=== PATIENT | female | born 1985 | race Caucasian/White ===

== ENCOUNTER 2021-03-11 12:00 | Emergency (ER) | payer OTHER, SELFPAY ==
--- NOTE | ~2021-03-11 | XR_ITS ---
EXAMINATION: XR CHEST CLINICAL INFORMATION: Chest pain. COMPARISON: Chest radiograph dated from 07/05/2013. TECHNIQUE: PA view of the chest was obtained. FINDINGS: No significant abnormality is noted involving the heart, lungs, mediastinum, bony thorax or soft tissues. XR/XR chest 1V IMPRESSION: Unremarkable examination.
[2021-03-11 13:01] VITALS: BP 127/82; PULSE 78; RESP 20; TEMP 36.7; O2SAT 97; BMI 30.5
[2021-03-11 13:43] LABS: MANUAL DIFF FLAG NO
[2021-03-11 13:46] LABS: Basophils Absolute Auto 0.1 X10*3/uL (0.0-0.2); Basophils Percent Auto 0.6 % (0-2); Eosinophils Absolute Auto 0.3 X10*3/uL (0.0-0.4); Hematocrit 41.5 % (37.0-47.0); Hemoglobin 13.8 g/dl (12.0-16.0); Imm Gran Abs Auto 0.02 X10*3/uL (0.00-0.03); Imm Gran Pct Auto 0.3 % (0.0-0.4); Lymphocytes Absolute Auto 3.5 X10*3/uL (1.2-4.9); Lymphocytes Percent Auto 44.5 % (20-40); Mean Corpuscular HGB Conc 33.3 g/dl (31.0-35.0); Mean Corpuscular Hemoglobin 26.1 pg (27.0-33.0); Mean Corpuscular Volume 78.4 fL (80.0-98.0); Mean Platelet Volume 11.2 fL (9.4-12.3); Monocytes Absolute Auto 0.5 X10*3/uL (0.1-1.2); Monocytes Percent Auto 6.5 % (2-11); Neutrophils Absolute Auto 3.4 x10*3/uL (2.0-8.3); Neutrophils Percent Auto 44.1 % (45-73); Platelet Count 187 X10*3/uL (160-400); Red Blood Count 5.29 X10*6/uL (4.20-5.50); Red Cell Distribution Width 13.7 % (11.0-16.0); White Blood Count 7.8 X10*3/uL (4.8-10.8)
[2021-03-11 13:57] LABS: INTERNATIONAL NORM RATIO 1.1 (0.9-1.1); Prothrombin Time 12.2 SEC (9.9-13.0)
[2021-03-11 14:05] LABS: Alanine Aminotransferase 23 U/L (0-31); Alkaline Phosphatase 90 U/L (39-117); Aspartate Amino Transferase 27 U/L (5-31); Bilirubin Direct 0.3 mg/dL (0.0-0.5); Bilirubin Total 0.6 mg/dL (0.0-1.0); Total Protein 6.6 g/dL (6.5-8.0)
[2021-03-11 14:14] LABS: HCG Quantitative < 2 mIU/mL
--- NOTE | 2021-03-11 17:03 | ED.GENADULT ---
HPI - General Adult General Chief complaint: General Medical <RAY Francis - Last Filed: 03/11/21 21:11> Stated complaint: Multiple complaints <RAY Francis Last Filed: 03/11/21 21:11> Time Seen by Provider: 03/11/21 13:22 <RAY Francis Last Filed: 03/11/21 21:11> Source: patient <RAY Francis Last Filed: 03/11/21 21:11> Mode of arrival: ambulatory <RAY Francis Last Filed: 03/11/21 21:11> History of Present Illness HPI narrative: 35-year-old female with past medical history of COVID 3 weeks ago, endometriosis, presenting to the ED complaining of suprapubic abdominal pain and vaginal bleeding with clots x4 days. Reports filling about 4 pads today. Denies taking anticoagulation. Also reports cough, headache, chest pain, myalgias, rash, & nausea. Denies being sexually active, denies vaginal discharge, SOB, fever, vomiting/diarrhea, dysuria/hematuria <RAY Francis Last Filed: 03/11/21 21:11> Onset (ago): day(s) <RAY Francis - Last Filed: 03/11/21 21:11> Related Data Home medications: Previous Rx's Medication Instructions Recorded triamcinolone acetonide 0.025 % 1 appl TOPICAL BID #80 g 03/11/21 topical ointment <RAY Francis Last Filed: 03/11/21 21:11> Allergies/adverse reactions: Allergies Allergy/AdvReac Type Severity Reaction Status Date / Time amoxicillin [AMOXICILLIN] Allergy Unknown UNKNOWN Unverified 10/27/19 17:31 dicyclomine [From BENTYL] Allergy Unknown UNKNOWN Unverified 10/27/19 17:31 doxycycline [DOXYCYCLINE] Allergy Unknown UNKNOWN Unverified 10/27/19 17:31 hydromorphone [Dilaudid] Allergy Unknown Verified 09/21/13 00:00 ibuprofen [From MOTRIN] Allergy Unknown UNKNOWN Unverified 10/27/19 17:31 NSAIDS (Non-Steroidal Allergy Unknown UNKNOWN Unverified 10/27/19 17:31 Anti-Inflamma [NSAIDS (NON-STEROIDAL ANTI-INFLAMMA] penicillin V Allergy Unknown Unverified 04/14/14 00:00 Penicillins [PENICILLINS] Allergy Unknown UNKNOWN Unverified 10/27/19 17:31 CILLINS Allergy Unknown UNKNOWN Uncoded 10/27/19 17:31 dilaudid Allergy Unknown nausea Uncoded 04/14/14 00:00 NSAIDS Allergy Unknown Uncoded 04/14/14 00:00 PROVOLONE CHEESE Allergy Unknown UNKNOWN Uncoded 10/27/19 17:31 <RAY Francis - Last Filed: 03/11/21 21:11> Review of Systems Review of Systems: Constitutional: No Fever, No Chills, + Fatigue, No Malaise ENT/Mouth: No Ear Pain, No Nasal Congestion, No sore throat, No Rhinorrhea, No Swallowing Difficulty Eyes: No Eye Pain, No Swelling, No Redness Cardiovascular: + Chest Pain, No SOB, No Edema, + Palpitations Respiratory: + Cough, No Sputum,No Dyspnea Gastrointestinal: + Nausea, No Vomiting, No Diarrhea, No Constipation, + Abdominal pain Genitourinary: + irregular bleeding, No Dysuria, No Urinary Frequency, No Hematuria, No Flank Pain, No Urinary Flow Changes Musculoskeletal: No joint pain, + Myalgias, No Joint Swelling Skin: No Skin Lesions, + rash Neuro: No Weakness, No Loss of Consciousness, No Dizziness, + Headache <RAY Francis - Last Filed: 03/11/21 21:11> Yes all other systems are reviewed and are negative <RAY Francis - Last Filed: 03/11/21 21:11> [facility] Past Medical History Attestation statement: The following information was validated with the patient. <RAY Francis - Last Filed: 03/11/21 21:11> Medical History: Medical History COVID <RAY Francis - Last Filed: 03/11/21 21:11> Social History Social History: Social History Advance Directives: No Advance Directives Information Provided: No Patient : No <RAY Francis Last Filed: 03/11/21 21:11> Physical Exam Vital Signs: Vital Signs: Last Vital Signs Temp 98.4 F 03/11/21 21:08 Pulse 88 03/11/21 21:08 Resp 18 03/11/21 21:08 BP 119/81 03/11/21 21:08 Pulse Ox 98 03/11/21 21:08 BMI result Body Mass Index 30.5 <RAY Francis - Last Filed: 03/11/21 21:11> Const: General: cooperative, healthy appearing, no acute distress, alert and awake <RAY Francis - Last Filed: 03/11/21 21:11> Orientation/consciousness: patient oriented x3 <RAY Francis - Last Filed: 03/11/21 21:11> Limitations: no limitations <RAY Francis - Last Filed: 03/11/21 21:11> HENMT: Head: Yes normal to inspection <RAY Francis - Last Filed: 03/11/21 21:11> Ears: hearing grossly normal bilaterally <RAY Francis - Last Filed: 03/11/21 21:11> General nose exam: Normal external nose present <RAY Francis - Last Filed: 03/11/21 21:11> Face and sinus: Yes normal facial exam <RAY Francis - Last Filed: 03/11/21 21:11> Eyes: General: appearance normal, both eyes and all related structures <RAY Francis - Last Filed: 03/11/21 21:11> EOM: EOMs intact bilaterally <RAY Francis - Last Filed: 03/11/21 21:11> Neck: Neck: Yes normal visual inspection and Yes no meningeal signs <RAY Francis - Last Filed: 03/11/21 21:11> Resp: Effort & Inspection: normal respiratory effort and no respiratory distress <RAY Francis - Last Filed: 03/11/21 21:11> Auscultation: clear to auscultation bilaterally, no rales, no rhonchi and no wheezes <RAY Francis - Last Filed: 03/11/21 21:11> Cardio: Rate: regular rate <Carrie Johnsonsalt PA - Last Filed: 03/11/21 21:11> Heart sounds: S1 normal heart sound present and S2 normal heart sound present <Carrie Poulvelvet PA - Last Filed: 03/11/21 21:11> GI: Inspection: Yes normal to inspection <Carrie Lew PA - Last Filed: 03/11/21 21:11> Palpation (GI): Soft to palpation, nontender, no guarding and not rigid <Carrie Poulvelvet PA - Last Filed: 03/11/21 21:11> : Other: No evidence of active hemorrhage, bleeding cleared with Q-tip <Carrie Poulsalt PA - Last Filed: 03/11/21 21:11> General: Yes no CVA tenderness <Carrie Poulsalt PA - Last Filed: 03/11/21 21:11> Speculum Exam - Vagina: vaginal bleeding <Carrie Lew PA - Last Filed: 03/11/21 21:11> Speculum Exam - Cervix: Cervical os closed <Carrie Lew PA - Last Filed: 03/11/21 21:11> Bimanual exam- vagina & uterus: normal bimanual exam and no cervical motion tenderness <Carrie Lew PA - Last Filed: 03/11/21 21:11> OB/external & speculum: vaginal bleeding; No vaginal discharge <Carrie Lew PA - Last Filed: 03/11/21 21:11> Back/Spine/Pelvis: Back: no CVA tenderness <Carrie Poulvelvet PA - Last Filed: 03/11/21 21:11> Skin: Other: + dermatitis/dry skin to right hand/wrist. No palm/sole involvement. No mucous membrane involvement <Carrie Poulsalt PA - Last Filed: 03/11/21 21:11> Wounds: no wounds <Carrie Poulvelvet PA - Last Filed: 03/11/21 21:11> Neuro: General: patient oriented x3 and no meningeal signs <Carrie Louann PA - Last Filed: 03/11/21 21:11> Gait exam (Neuro): Normal gait present <Carrie Poulsalt PA - Last Filed: 03/11/21 21:11> Extrem: General: Yes normal to inspection <RAY Francis - Last Filed: 03/11/21 21:11> Course Course Course Narrative: -no leukocytosis. H&H stable. Labs otherwise unremarkable. Troponin negative. Beta quant negative XR chest 1V IMPRESSION: Unremarkable examination. >> results discussed with patient including worrisome signs and symptoms and strict return precautions to need close follow-up with PCP/OBGYN. Patient verbalized understanding feel safe for discharge home at this time <RAY Francis - Last Filed: 03/11/21 21:11> Medical Decision Making MDM Narrative Medical decision making narrative: 35-year-old female with past medical history of COVID 3 weeks ago, endometriosis, presenting to the ED complaining of suprapubic abdominal pain and vaginal bleeding with clots x4 days. Also reports cough, headache, chest pain, myalgias, rash, & nausea. On exam vital signs stable, NAD/nontoxic appearing, lungs CTA, abdomen soft/nontender. On pelvic vaginal bleeding noted, no active hemorrhage, cleared with Q-tip, no CMT/adnexal tenderness. Concern for DUB/endometriosis bleeding vs menstruation. Rule out anemia. Lower concern for ovarian torsion/cyst without tenderness on exam. Concern for viral syndrome/post COVID symptoms. Low concern for ACS/PE. Will obtain CXR to rule out pneumonia Plan: EKG, labs, UA, CXR, STI testing <RAY Francis - Last Filed: 03/11/21 21:11> Medical Records Medical records reviewed: Yes I reviewed the patient's medical records. <RAY Francis - Last Filed: 03/11/21 21:11> Lab Data Lab results reviewed: Yes I reviewed the patient's lab results. <RAY Francis - Last Filed: 03/11/21 21:11> Result diagrams: : 03/11/21 13:36 03/11/21 13:36 <RAY Francis - Last Filed: 03/11/21 21:11> Labs: Lab Results 03/11/21 03/11/21 03/11/21 Range/Units 13:36 13:36 13:36 WBC 7.8 (4.8-10.8) X10*3/uL RBC 5.29 (4.20-5.50) X10*6/uL Hgb 13.8 (12.0-16.0) g/dl Hct 41.5 (37.0-47.0) % MCV 78.4 L (80.0-98.0) fL MCH 26.1 L (27.0-33.0) pg MCHC 33.3 (31.0-35.0) g/dl RDW 13.7 (11.0-16.0) % Plt Count 187 (160-400) X10*3/uL MPV 11.2 (9.4-12.3) fL Immature Gran % (Auto) 0.3 (0.0-0.4) % Neut % (Auto) 44.1 L (45-73) % Lymph % (Auto) 44.5 H (20-40) % [place] % (Auto) 6.5 (2-11) % Eos % (Auto) 4.0 (0-4) % Baso % (Auto) 0.6 (0-2) % Lymph # (Auto) 3.5 (1.2-4.9) X10*3/uL [place] # (Auto) 0.5 (0.1-1.2) X10*3/uL Eos # (Auto) 0.3 (0.0-0.4) X10*3/uL Baso # (Auto) 0.1 (0.0-0.2) X10*3/uL Abs Immat Gran (auto) 0.02 (0.00-0.03) X10*3/uL Absolute Neuts (auto) 3.4 (2.0-8.3) x10*3/uL Absolute Nucleated RBC 0.000 (0.0-0.012) X10*3/uL Nucleated RBC % (auto) 0.0 (0.0-0.2) /100WBC PT 12.2 (9.9-13.0) SEC INR 1.1 (0.9-1.1) Sodium 139 (135-145) mmol/L Potassium 4.1 (3.3-5.1) mmol/L Chloride 104 (96-108) mmol/L Carbon Dioxide 27 (22-29) mmol/L Anion Gap 12 (12-20) BUN 9 (9-16) mg/dL Creatinine 0.68 (0.5-1.4) mg/dL Estim Creat Clear Calc 99.5 Estimated GFR > 60 Random Glucose 93 (60-115) mg/dL Calcium 9.2 (8.4-10.2) mg/dL Magnesium 2.0 (1.6-2.6) mg/dL Total Bilirubin 0.6 (0.0-1.0) mg/dL Direct Bilirubin 0.3 (0.0-0.5) mg/dL AST 27 (5-31) U/L ALT 23 (0-31) U/L Alkaline Phosphatase 90 (39-117) U/L Troponin I High Sens (<3.5-17.0) ng/L Total Protein 6.6 (6.5-8.0) g/dL Albumin 4.0 (3.5-5.0) g/dL Beta HCG, Quant < 2 mIU/mL Marisol species DNA (Negative) Chlam trachomat DNA PCR (Not Detect.) Gardnerella DNA Probe (Negative) N.gonorrhoeae DNA (PCR) (Not Detect.) Trichomonas DNA Probe (Negative) 03/11/21 03/11/21 03/11/21 Range/Units 13:36 19:54 19:54 WBC (4.8-10.8) X10*3/uL RBC (4.20-5.50) X10*6/uL Hgb (12.0-16.0) g/dl Hct (37.0-47.0) % MCV (80.0-98.0) fL MCH (27.0-33.0) pg MCHC (31.0-35.0) g/dl RDW (11.0-16.0) % Plt Count (160-400) X10*3/uL MPV (9.4-12.3) fL Immature Gran % (Auto) (0.0-0.4) % Neut % (Auto) (45-73) % Lymph % (Auto) (20-40) % [place] % (Auto) (2-11) % Eos % (Auto) (0-4) % Baso % (Auto) (0-2) % Lymph # (Auto) (1.2-4.9) X10*3/uL [place] # (Auto) (0.1-1.2) X10*3/uL Eos # (Auto) (0.0-0.4) X10*3/uL Baso # (Auto) (0.0-0.2) X10*3/uL Abs Immat Gran (auto) (0.00-0.03) X10*3/uL Absolute Neuts (auto) (2.0-8.3) x10*3/uL Absolute Nucleated RBC (0.0-0.012) X10*3/uL Nucleated RBC % (auto) (0.0-0.2) /100WBC PT (9.9-13.0) SEC INR (0.9-1.1) Sodium (135-145) mmol/L Potassium (3.3-5.1) mmol/L Chloride (96-108) mmol/L Carbon Dioxide (22-29) mmol/L Anion Gap (12-20) BUN (9-16) mg/dL Creatinine (0.5-1.4) mg/dL Estim Creat Clear Calc Estimated GFR Random Glucose (60-115) mg/dL Calcium (8.4-10.2) mg/dL Magnesium (1.6-2.6) mg/dL Total Bilirubin (0.0-1.0) mg/dL Direct Bilirubin (0.0-0.5) mg/dL AST (5-31) U/L ALT (0-31) U/L Alkaline Phosphatase (39-117) U/L Troponin I High Sens < 3.5 (<3.5-17.0) ng/L Total Protein (6.5-8.0) g/dL Albumin (3.5-5.0) g/dL Beta HCG, Quant mIU/mL Marisol species DNA Negative (Negative) Chlam trachomat DNA PCR NOT DETECTED (Not Detect.) Gardnerella DNA Probe Negative (Negative) N.gonorrhoeae DNA (PCR) NOT DETECTED (Not Detect.) Trichomonas DNA Probe Negative (Negative) <RAY Francis - Last Filed: 03/11/21 21:11> Discharge Plan Discharge Clinical Impression: Vaginal bleeding, Dermatitis <RAY Francis - Last Filed: 03/11/21 21:11> Patient Disposition: Home, Self-Care <RAY Francis - Last Filed: 03/11/21 21:11> Instructions: Dysfunctional Uterine Bleeding (ED), Dermatitis (ED) <RAY Francis - Last Filed: 03/11/21 21:11> Additional Instructions: Your blood work was reassuring today in the emergency department. Her chest x-ray was unremarkable. We tested you for sexually transmitted infections, culture should be back in 48-72 hours, we will call you with positive results only Apply triamcinolone cream to rash as needed. Take Benadryl as needed If symptoms persist or worsen, if constant worsening vaginal bleeding, abdominal pain, fever, inability to eat or drink return to the emergency department Please follow-up with her doctor <RAY Francis - Last Filed: 03/11/21 21:11> Prescriptions: New triamcinolone acetonide 0.025 % ointment 1 appl topical BID Qty: 80 0RF <RAY Francis - Last Filed: 03/11/21 21:11> Referrals: Jennyfer Ortega MD [Physician] - 2 days Cornelio Blackwell MD [Physician] - 2 days <RAY Francis - Last Filed: 03/11/21 21:11> Interventions: ED Discharge Assessment Last Done: 03/11/21 21:15 <RAY Francis - Last Filed: 03/11/21 21:11> Discharge Date/Time: 03/11/21 21:17 <RAY Francis - Last Filed: 03/11/21 21:11>
[2021-03-11 18:00] VITALS: BP 146/78; PULSE 78; RESP 189; O2SAT 98
[2021-03-11 18:53] LABS: Anion Gap 12 (12-20); Blood Urea Nitrogen 9 mg/dL (9-16); Calcium 9.2 mg/dL (8.4-10.2); Carbon Dioxide 27 mmol/L (22-29); Chloride 104 mmol/L (96-108); Creatinine Clr Calc Pharmacy 99.5; Estimated Glomerular Filt Rate > 60; Glucose Random 93 mg/dL (60-115); Potassium 4.1 mmol/L (3.3-5.1); Sodium 139 mmol/L (135-145)
--- NOTE | 2021-03-11 19:27 | ECG_ITS ---
Test Reason : CP Blood Pressure : / mmHG Vent. Rate : 071 BPM Atrial Rate : 071 BPM P-R Int : 138 ms QRS Dur : 080 ms QT Int : 422 ms P-R-T Axes : 022 042 043 degrees QTc Int : 458 ms Normal sinus rhythm Normal ECG When compared with ECG of 05-JUL-2013 14:19, Vent. rate has decreased BY 42 BPM Referred By: Carrie Lew Electronically Signed By:DAVIDA JUDGE
[2021-03-11 19:35] LABS: Troponin-I High Sensitivity < 3.5 ng/L (<3.5-17.0)
[2021-03-11 21:08] VITALS: BP 119/81; PULSE 88; RESP 18; TEMP 36.9; O2SAT 98
[2021-03-12 07:22] LABS: CT PCR NOT DETECTED (Not Detect.); NG PCR NOT DETECTED (Not Detect.)
[2021-03-12 15:49] LABS: BV Int Neg Control Negative (Negative); BV Int Pos Control Positive (Positive)
== END 2021-03-11 21:17 | disposition home or self-care (01) ==
PROVIDERS: Physician Assistant; Emergency Provider Emergency Medicine
DX: N93.9 Abnormal uterine and vaginal bleeding, unspecified (principal); L30.9 Dermatitis, unspecified; R10.30 Lower abdominal pain, unspecified; Z86.16 Personal history of COVID-19
CPT/HCPCS: 36415; 71045; 80048; 80076; 83735; 84484; 84702; 85025; 85610; 87480; 87491; 87510; 87591; 87660; 93005; 99284

== ENCOUNTER 2024-06-30 00:02 | Emergency (ER) | payer OTHER, SELFPAY ==
--- NOTE | ~2024-06-30 | CT_ITS ---
CLINICAL HISTORY: fall, [place], confusion CT head without contrast Comparison: None Findings: No intra-axial mass, midline shift, hydrocephalus, or acute hemorrhage. No significant atrophy-like change or white matter disease. There is no sinus or mastoid fluid. The orbits are unremarkable. There is no acute fracture. IMPRESSION: 1. No acute intracranial findings. This document has been electronically signed by: Elida Zacarias MD on 06/30/2024 01:26:52
--- NOTE | ~2024-06-30 | CT_ITS ---
CLINICAL HISTORY: pain, fall CT cervical spine without contrast Comparison: None Findings: Mild convex left curvature. Straightening of upper cervical lordosis. Mild degenerative changes with associated mild to moderate multilevel foraminal stenoses. No acute fractures or dislocations. No acute findings on limited view of the intracranial contents. Soft tissues of the neck are normal. Lung apices are clear. IMPRESSION: No acute findings. This document has been electronically signed by: Elida Zacarias MD on 06/30/2024 01:25:48
[2024-06-30 00:05] VITALS: BP 144/104; PULSE 85; O2SAT 99
[2024-06-30 00:10] VITALS: BP 142/56; PULSE 68; RESP 18; TEMP 36.6; O2SAT 97; BMI 24.1
--- NOTE | 2024-06-30 00:35 | ED.GENADULT ---
HPI - General Adult General Chief complaint: General Medical Stated complaint: Fall 3 days ago, Neck-back pain, head pressure Time Seen by Provider: 06/30/24 00:22 Source: patient Mode of arrival: ambulatory Limitations: no limitations History of Present Illness ED Provider: Dr. Anneliese Harrington HPI narrative: Patient comes to the emergency room via ambulance from home. A proximally, 72 hours ago, patient was rough-housing with her children. Patient states that her 9-year-old son picked her up from her lower extremities and accidentally dropped her on her head. Since then, patient has been having dizziness, feeling lightheaded, light sensitivity, left-sided headache, feels confused at times. Complaining of pressure inside of her head. Patient denies losing consciousness or being on blood thinners. Patient denies visual changes Related Data Previous Rx's ?Medication ?Instructions ?Recorded triamcinolone acetonide 0.025 % 1 appl topical BID #80 grams 03/11/21 topical ointment metoclopramide HCl 5 mg tablet 5 mg PO DAILY #6 tabs 06/30/24 (Reglan) tramadol 50 mg tablet 50 mg PO BID PRN pain #6 tabs 06/30/24 Allergies Allergy/AdvReac Type Severity Reaction Status Date / Time amoxicillin [AMOXICILLIN] Allergy Unknown UNKNOWN Verified 06/30/24 00:19 dicyclomine [From BENTYL] Allergy Unknown UNKNOWN Verified 06/30/24 00:19 doxycycline [DOXYCYCLINE] Allergy Unknown UNKNOWN Verified 06/30/24 00:19 hydromorphone [Dilaudid] Allergy Unknown Unknown Verified 06/30/24 00:19 ibuprofen [From MOTRIN] Allergy Unknown UNKNOWN Verified 06/30/24 00:19 NSAIDS (Non-Steroidal Allergy Unknown UNKNOWN Verified 06/30/24 00:19 Anti-Inflamma [NSAIDS (NON-STEROIDAL ANTI-INFLAMMA] penicillin V Allergy Unknown Unknown Verified 06/30/24 00:19 Penicillins [PENICILLINS] Allergy Unknown UNKNOWN Verified 06/30/24 00:19 CILLINS Allergy Unknown UNKNOWN Uncoded 06/30/24 00:19 dilaudid Allergy Unknown nausea Uncoded 06/30/24 00:19 NSAIDS Allergy Unknown Unknown Uncoded 06/30/24 00:19 PROVOLONE CHEESE Allergy Unknown UNKNOWN Uncoded 06/30/24 00:19 Review of Systems Review of Systems: Constitutional : No Weight loss, No Fever, No Chills, No Night Sweats, No Fatigue, No Malaise ENT/Mouth : No Hearing loss, No Ear Pain, No Nasal Congestion, No Sinus Pain, No Hoarseness, No sore throat, No Rhinorrhea, No Swallowing Difficulty Eyes: Complaining of photosensitivity, No Eye Pain, No Swelling, No Redness, No Foreign Body, No Discharge, No Vision Changes Cardiovascular : No Chest Pain, No SOB, No Dyspnea on Exertion, No Orthopnea, No Edema, No Palpitations Respiratory : No Cough, No Sputum, No Wheezing, No Smoke Exposure, No Dyspnea Gastrointestinal : No Nausea, No Vomiting, No Diarrhea, No Constipation, No abdominal Pain, No Hematochezia, No Melena Genitourinary : no irregular bleeding, No Dysuria, No Urinary Frequency, No Hematuria, No Urinary Incontinence, No Urgency, No Flank Pain, No Urinary Flow Changes, No Hesitancy Musculoskeletal : No joint pain, No Myalgias, No Joint Swelling Skin : No Skin Lesions, No rash Neuro : No Weakness, No Numbness, No Paresthesias, No Loss of Consciousness, complaining of left-sided headache, dizziness, confusion Psych : No Anxiety/Panic, No Depression, No SI/HI/AH/VH, No Social Issues, Heme/Lymph: No Bruising, No Bleeding,No Lymphadenopathy Endocrine : No Polyuria, No Polydipsia, No Temperature Intolerance [facility] Past Medical History Medical History (Updated 06/30/24 @ 01:47 by Anneliese Harrington MD) Anxiety COVID Social History Social History Advance Directives: No Advance Directives Information Provided: Yes Physical Exam ED Vital Signs: Vital Signs - 24 hr 06/30/24 00:10 Temperature 97.8 F Pulse Rate 68 Respiratory Rate 18 Blood Pressure 142/56 H Pulse Oximetry 97 Oxygen Delivery Method Room Air BMI result Body Mass Index 24.1 Const Other: Appearance: Alert. Oriented X3. No acute distress. Eyes: Pupils equal, round and reactive to light. Patient has photosensitivity ENT: Pharynx normal. Neck: Normal inspection. Neck supple. No lymph nodes noted. No crepitus CVS: Normal heart rate and rhythm. Pulses normal. Normal S1 and S2 Respiratory: No respiratory distress. Breath sounds normal. No Wheezing. No rales Abdomen: Soft and nontender. No rigidity. No distention. Skin: Skin warm and dry. Normal skin color. Normal skin turgor. Patient has multiple scalp contusions especially on the left side Extremities: No lower extremity edema. No Lacerations. No Rash Neuro: Oriented X 3. No motor deficit. No sensory deficit. Moving all extremities. No slurred speech. CN 2 through 12 grossly intact Psych: calm, cooperative, normal affect Course Course Course Narrative: Patient likely has a concussion. Patient receiving at this time IV morphine, Reglan, Benadryl. CT scan of the head and cervical spine pending. Patient states that when she was 15-year-old, she got prescribed a muscle relaxant which she does not remember the name, states she had an anaphylactic reaction. Therefore, no muscle relaxants will be prescribed to the patient. Medications Administered Discontinued Medications Generic Name Dose Route Start Last Admin Trade Name Freq PRN Reason Stop Dose Admin Diphenhydramine HCl 25 mg 06/30/24 00:34 06/30/24 01:19 Diphenhydramine Hcl 50 Mg/Ml Vial IVPUSH 06/30/24 00:35 25 mg ONCE ONE Administration Metoclopramide HCl 10 mg 06/30/24 00:34 06/30/24 01:21 Metoclopramide Hcl 10 Mg/2 Ml Vial IVPUSH 06/30/24 00:35 10 mg ONCE ONE Administration Morphine Sulfate 2 mg 06/30/24 00:34 06/30/24 01:19 Morphine Sulfate 2 Mg/Ml Cartridge IVPUSH 06/30/24 00:35 2 mg ONCE ONE Administration Protocol Medical Decision Making Medical Decision Making MDM Narrative: My interpretation of CT head and cervical spine, no acute injury. Clinically, patient has a concussion. Overall, patient feeling a bit better. Discussed with the patient that she it is brain rest for several days. If she does not improve, she may need a referral to sports Medicine for treatment of concussion. Differential Diagnosis Differential Diagnoses: The differential diagnosis associated with the presentation includes (Contusion, concussion, intracranial bleed) Admission/Observation Consideration of admission/observation: Escalation of care including admission/observation considered (Given patient's symptoms, presentation, observation was considered) Independent Interpretation I performed an independent interpretation of an: CT Scan Radiology Impression Discussion of test interpretation with radiology: I have reviewed the radiologist's reading. Radiologist Impression: No intra-axial mass, midline shift, hydrocephalus, or acute hemorrhage. No significant atrophy-like change or white matter disease. There is no sinus or mastoid fluid. The orbits are unremarkable. There is no acute fracture. Critical Care Time Critical Care Time Critical Care Time: Yes Total Critical Care Time: 35 Attestation: I have personally provided critical care time. Time includes review of lab data, radiology results, discussion with consultants, and monitoring for potential decompensation. Intervention performed as documented. Discharge Plan Discharge Clinical Impression: Concussion Patient Disposition: Home, Self-Care Instructions: Concussion (ED) Additional Instructions: I have personally provided critical care time. Time includes review of lab data, radiology results, discussion with consultants, and monitoring for potential decompensation. Intervention performed as documented. Prescriptions: New tramadol 50 mg tablet 50 mg PO BID PRN (Reason: pain) Qty: 6 0RF metoclopramide HCl [Reglan] 5 mg tablet 5 mg PO DAILY Qty: 6 0RF No Action triamcinolone acetonide 0.025 % ointment 1 appl topical BID Qty: 80 0RF Print Language: Korean
[2024-06-30] MEDS: diphenhydrAMINE HCL 50 MG/ML VIAL 25 MG IVPUSH (01:19)
[2024-06-30] MEDS: Morphine Sulfate 2 MG/ML CARTRIDGE IVPUSH (01:19)
[2024-06-30] MEDS: Metoclopramide HCl 10 MG/2 ML VIAL IVPUSH (01:21)
[2024-06-30 02:02] VITALS: BP 115/55; PULSE 85; RESP 18; TEMP 36.8; O2SAT 97
[2024-06-30 02:08] VITALS: BP 115/55; PULSE 85; RESP 18; TEMP 36.8; O2SAT 97
== END 2024-06-30 02:34 | disposition home or self-care (01) ==
PROVIDERS: Emergency Provider Emergency Medicine; PCP Family Medicine
DX: S06.0X0A Concussion without loss of consciousness, initial encounter (principal); W04.XXXA Fall while being carried or supported by other persons, initial encounter; R42 Dizziness and giddiness; Y93.83 Activity, rough housing and horseplay; Y92.039 Unspecified place in apartment as the place of occurrence of the external cause; Y99.9 Unspecified external cause status
CPT/HCPCS: 70450; 72125; 96374; 96375; 99283; 99284; J1200; J2270; J2765

== ENCOUNTER → 2024-06-30 00:33 | Outpatient (BNV) | payer OTHER, SELFPAY | PROVIDERS: Emergency Provider Emergency Medicine; PCP Family Medicine; Visit Provider Radiology Diagnostic Radiology | DX: M54.2 Cervicalgia (principal); R51.9 Headache, unspecified; R41.0 Disorientation, unspecified; W19.XXXA Unspecified fall, initial encounter | CPT/HCPCS: 70450; 72125 ==